=== PATIENT | male | born 1965 | race Caucasian/White ===

== ENCOUNTER 2016-11-15 14:20 | Emergency (ER) | payer OTHER ==
--- NOTE | ~2016-11-15 | CR282 ---
[facility] A Service of [facility] & [facility] RADIOLOGY TEXT RESULTS PATIENT: GABRIELLA PATTON LOCATION: CFTX : 63 UNIT #: [id number] AGE: [address]: Cynthia Merritt APRN SEX: M ORDER DR: [id number] [facility] [address] [place], [place] [address] [id number] E MR#: [id number] Acc #: [id number] NAME: GABRIELLA PATTON. : 1965 SEX: M STUDY DATE/TIME: 11/15/2016 14:23 UNIT: [facility] ROOM: STUDY DESCRIPTION: CR Wrist Min 3 View Rt Attending Physician: Cynthia Merritt A.P.R.N. Ordering Physician: Ed Karthik Cade M.D. Primary Care Physician: Ml Mcpherson M.D. MEDICAL IMAGING REPORT This report is preliminary unless electronic signature is present EXAM Right wrist, 3 views. CLINICAL HISTORY Pain after a fall. FINDINGS There is a mildly displaced fracture of the radial styloid, with involvement of the radiocarpal joint. No other fracture is seen. Dictated by... Arthur Rae M.D. THIS IS AN ELECTRONICALLY VERIFIED REPORT Arthur Rae M.D. at 11/16/2016 9:40 AM TEV/jazw TD: 11/15/2016 17:16 JOB #: [id number] MEDICAL IMAGING REPORT Page 1 of 1 COPY
--- NOTE | ~2016-11-15 | CR142 ---
[facility] A Service of [facility] & [facility] RADIOLOGY TEXT RESULTS PATIENT: GABRIELLA PATTON LOCATION: CFTX : 63 UNIT #: [id number] AGE: [address]: Cynthia Merritt APRN SEX: M ORDER DR: [id number] [facility] [address] [place], [place] [address] [id number] E MR#: [id number] Acc #: [id number] NAME: GABRIELLA PATTON. : 1965 SEX: M STUDY DATE/TIME: 11/15/2016 14:22 UNIT: [facility] ROOM: STUDY DESCRIPTION: CR Hand Min 3 Views Rt Attending Physician: Cynthia Merritt A.P.R.N. Ordering Physician: Ed Karthik Cade M.D. Primary Care Physician: Ml Mcpherson M.D. MEDICAL IMAGING REPORT This report is preliminary unless electronic signature is present EXAM Right hand 3 views 11/15/2016 COMPARISON None HISTORY Pain and swelling after fall. FINDINGS The hand itself is normal except for degenerative change, but there is a mildly displaced fracture of the radial styloid. See accompanying wrist report. Dictated by... Arthur Rae M.D. THIS IS AN ELECTRONICALLY VERIFIED REPORT Arthur Rae M.D. at 11/16/2016 9:40 AM SABINA/stewart TD: 11/15/2016 17:16 JOB #: [id number] MEDICAL IMAGING REPORT Page 1 of 1 COPY
[~2016-11-15 14:20] MED LIST: LISINOPRIL5 MG PO
== END 2016-11-15 16:08 | disposition home or self-care (01) ==
LOC: CFTX 14:20
DX: S52.511A Displaced fracture of right radial styloid process, initial encounter for closed fracture (principal); F17.200 Nicotine dependence, unspecified, uncomplicated; I10 Essential (primary) hypertension; Z98.890 Other specified postprocedural states; W23.0XXA Caught, crushed, jammed, or pinched between moving objects, initial encounter; Y92.009 Unspecified place in unspecified non-institutional (private) residence as the place of occurrence of the external cause
CPT/HCPCS: 29125; 73110; 73130; 99283